=== PATIENT | male | born 2000 | race African-American/Black ===

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

== ENCOUNTER 2023-12-17 03:18 | Emergency (ER) | payer MEDICAID, SELFPAY ==
--- NOTE | ~2023-12-17 | XR_ITS ---
EXAMINATION: XR CHEST CLINICAL INFORMATION: Shortness of breath COMPARISON: Chest radiograph 02/06/2020 TECHNIQUE: Frontal view of the chest was obtained. FINDINGS: Normal appearance of the cardiomediastinal structures. No effusions or pneumothoraces. Normal pattern of pulmonary vasculature. No focal pulmonary consolidation. XR/XR chest 1V IMPRESSION: No acute cardiopulmonary abnormalities. Electronically signed by: Sorin Cronin MD 12/17/2023 03:59 AM EDT
[2023-12-17 03:20] VITALS: BP 145/87; PULSE 104; RESP 24; TEMP 36.6; O2SAT 93; BMI 25.1
--- NOTE | 2023-12-17 03:29 | MHC.EDTECH ---
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
--- NOTE | 2023-12-17 03:30 | ED_ITS ---
HPI - SOB/Dyspnea General Chief Complaint: Dyspnea Stated Complaint: asthma attack Time Seen by Provider: 12/17/23 03:26 Source: patient Mode of arrival: ambulatory Limitations: no limitations History of Present Illness ED Provider: Dr. Joie Kelly HPI Narrative: Patient comes to the emergency room complaining of shortness of breath due to an asthma exacerbation. Patient states that for about 9 hours now he has been trying to manage his asthma at home with his pump but it is not working. Patient denies chest pain. Related Data Previous Rx's ?Medication ?Instructions ?Recorded albuterol sulfate 90 mcg/actuation 2 inh inhalation Q6-8H PRN 02/06/20 aerosol inhaler shortness of breath or wheezing #18 grams prednisone 20 mg tablet 40 mg (2 x 20 mg) PO DAILY #10 tabs 02/06/20 albuterol sulfate 90 mcg/actuation 2 puff inhalation Q4-6H PRN 12/17/23 aerosol inhaler shortness of breath or wheezing #8.5 grams prednisone 50 mg tablet 50 mg PO DAILY #4 tabs 12/17/23 Allergies Allergy/AdvReac Type Severity Reaction Status Date / Time No Known Allergies Allergy Verified 12/17/23 03:22 Review of Systems 2 Review of Systems: Constitutional : No Weight loss, No Fever, No Chills, No Night Sweats, No Fatigue, No Malaise ENT/Mouth : No Hearing loss, No Ear Pain, No Nasal Congestion, No Sinus Pain, No Hoarseness, No sore throat, No Rhinorrhea, No Swallowing Difficulty Eyes: No Eye Pain, No Swelling, No Redness, No Foreign Body, No Discharge, No Vision Changes Cardiovascular : No Chest Pain, No SOB, No Dyspnea on Exertion, No Orthopnea, No Edema, No Palpitations Respiratory : No Cough, No Sputum, complaining of Wheezing, No Smoke Exposure, No Dyspnea Gastrointestinal : No Nausea, No Vomiting, No Diarrhea, No Constipation, No abdominal Pain, No Hematochezia, No Melena Genitourinary : no irregular bleeding, No Dysuria, No Urinary Frequency, No Hematuria, No Urinary Incontinence, No Urgency, No Flank Pain, No Urinary Flow Changes, No Hesitancy Musculoskeletal : No joint pain, No Myalgias, No Joint Swelling Skin : No Skin Lesions, No rash Neuro : No Weakness, No Numbness, No Paresthesias, No Loss of Consciousness, No Dizziness, No Headache Psych : No Anxiety/Panic, No Depression, No SI/HI/AH/VH, No Social Issues, Heme/Lymph: No Bruising, No Bleeding,No Lymphadenopathy Endocrine : No Polyuria, No Polydipsia, No Temperature Intolerance [facility] Past Medical History Medical History Asthma Family History Family History (System 12/23/22 @ 12:31 by Francia Rojas) Other Family history non-contributory Social History Social History (System 12/23/22 @ 12:31 by Francia Rojas) Household Members: Family Alcohol intake: never Advance Directives: No Advance Directives Information Provided: Yes Physical Exam 2 Vital Signs: Vital Signs: Last Vital Signs Temp 97.9 F 12/17/23 03:20 Pulse 106 H 12/17/23 04:53 Resp 18 12/17/23 04:53 BP 145/87 H 12/17/23 03:20 Pulse Ox 93 12/17/23 06:48 O2 Del Method Room Air 12/17/23 03:20 BMI result Body Mass Index 25.1 Const: Other: Appearance: Alert. Oriented X3. Uncomfortable Eyes: Pupils equal, round and reactive to light. ENT: Pharynx normal. Neck: Normal inspection. Neck supple. No lymph nodes noted. No crepitus CVS: Normal heart rate and rhythm. Pulses normal. Normal S1 and S2 Respiratory: In moderate respiratory distress, wheezing bilaterally, using accessory muscles Abdomen: Soft and nontender. No rigidity. No distention. Skin: Skin warm and dry. Normal skin color. Normal skin turgor. Extremities: No lower extremity edema. No Lacerations. No Rash Neuro: Oriented X 3. No motor deficit. No sensory deficit. Moving all extremities. No slurred speech. CN 2 through 12 grossly intact Psych: calm, cooperative, normal affect Course Course Course Narrative: Patient receiving an albuterol treatment, bronch protocol, magnesium, Solu- Medrol -patient's labs and x-rays pending Medications Administered Discontinued Medications Generic Name Dose Route Start Last Admin Trade Name Freq PRN Reason Stop Dose Admin Albuterol Sulfate 10 mg 12/17/23 04:42 12/17/23 04:51 Albuterol Sulfate (0.083%) 2.5 Mg/3 Ml Vial.Neb INHALE 10/05/24 04:43 10 mg ONCE ONE Administration Albuterol Sulfate 7.5 mg/ 0 mg 12/17/23 03:40 12/17/23 03:41 Albuterol/Ipratropium 3 ml INHALE 12/17/23 03:41 1 each ONCE ONE Administration Magnesium Sulfate 2 gm in 50 mls @ 25 mls/hr 12/17/23 03:27 12/17/23 05:53 Magnesium Sulfate/H2o IV 12/17/23 05:26 Infused ONCE ONE Infusion Methylprednisolone Sodium Succinate 125 mg 12/17/23 03:27 12/17/23 03:43 Methylprednisolone Sod Succ 125 Mg/2 Ml Vial IVPUSH 12/17/23 03:28 125 mg ONCE ONE Administration Medical Decision Making Medical Decision Making [facility] Narrative: My interpretation of labs: Normal hematology and chemistry -my interpretation of chest x-ray, no obvious abnormality, no infiltrate After IV treatment and nebulization treatments, patient feels better. Patient's oxygen saturation 91%, still wheezing but overall breathing more comfortably Patient receiving more nebulization treatments -patient needed an additional nebulization treatment. -patient was walked around the emergency room, oxygen saturation between 93 and 97%. No shortness of breath or wheezing. Patient feels much better. Patient states that before he came in he could barely walk couple of feet before getting significantly short of breath, no patient states that he can walk at baseline without getting shortness of breath. Differential Diagnosis Differential Diagnoses: The differential diagnosis associated with the presentation includes (Asthma exacerbation) Admission/Observation Consideration of admission/observation: Escalation of care including admission/observation considered (Given patient's initial presentation, observation/admission was considered) Lab Data [facility] Lab Attestation statement: I reviewed the patient's lab results. 12/17/23 03:39 12/17/23 03:39 Labs: Lab Results 12/17/23 Range/Units 03:39 WBC 10.1 (4.8-10.8) X10*3/uL RBC 5.52 (4.60-5.80) X10*6/uL Hgb 16.4 (14.0-18.0) g/dl Hct 48.3 (42.0-52.0) % MCV 87.5 (80.0-98.0) fL MCH 29.7 (27.0-33.0) pg MCHC 34.0 (31.0-36.0) g/dl RDW 11.9 (11.0-16.0) % Plt Count 261 (160-400) X10*3/uL MPV 10.3 (9.4-12.4) fL Immature Gran % (Auto) 0.2 (0.0-0.4) % Neut % (Auto) 43.6 L (45-73) % Lymph % (Auto) 38.4 (20-40) % [place]cl[place] % (Auto) 6.6 (2-11) % Eos % (Auto) 10.2 H (0-4) % Baso % (Auto) 1.0 (0-2) % Lymph # (Auto) 3.9 (1.2-4.9) X10*3/uL [place] # (Auto) 0.7 (0.1-1.2) X10*3/uL Eos # (Auto) 1.0 H (0.0-0.4) X10*3/uL Baso # (Auto) 0.1 (0.0-0.2) X10*3/uL Abs Immat Gran (auto) 0.02 (0.00-0.03) X10*3/uL Absolute Neuts (auto) 4.4 (2.0-8.3) x10*3/uL Absolute Nucleated RBC 0.000 (0.0-0.012) X10*3/uL Nucleated RBC % (auto) 0.0 (0.0-0.2) /100WBC Sodium 142 (135-145) mmol/L Potassium 3.9 (3.3-5.1) mmol/L Chloride 106 (96-108) mmol/L Carbon Dioxide 24 (22-29) mmol/L Anion Gap 16 (12-20) BUN 11 (9-16) mg/dL Creatinine 1.00 (0.5-1.4) mg/dL Estim Creat Clear Calc 115.8 Estimated GFR > 60 Random Glucose 90 (60-115) mg/dL Calcium 9.3 (8.4-10.2) mg/dL COVID-19 (LOS) Negative (Negative) COVID-19 Clin Com See Note Critical Care Time Critical Care Time Critical Care Time: Yes Total Critical Care Time: 60 Attestation: I have personally provided critical care time. Time includes review of lab data, radiology results, discussion with consultants, and monitoring for potential decompensation. Intervention performed as documented. Discharge Plan Discharge Clinical Impression: Asthma with exacerbation Patient Disposition: Home, Self-Care Instructions: Asthma (ED) Additional Instructions: Please follow-up with your primary care physician tomorrow. If you have any worsening or new symptoms, please return to the emergency room or call 911 Prescriptions: New albuterol sulfate 90 mcg/actuation HFA aerosol inhaler 2 puff inhalation Q4-6H PRN (Reason: shortness of breath or wheezing) Qty: 8.5 1RF prednisone 50 mg tablet 50 mg PO DAILY Qty: 4 0RF No Action albuterol sulfate 90 mcg/actuation HFA aerosol inhaler 2 inh inhalation Q6-8H PRN (Reason: shortness of breath or wheezing) Qty: 18 2RF prednisone 20 mg tablet 40 mg PO DAILY Qty: 10 0RF Print Language: Tamazight
[2023-12-17] MEDS: Albuterol Sulfate 7.5 MG, Albuterol/Iprat 2.5/0.5MG 3 ML 3 ML INHALE (03:41)
[2023-12-17 03:42] VITALS: PULSE 104; RESP 26; O2SAT 97
[2023-12-17 03:43] LABS: MANUAL DIFF FLAG NO
[2023-12-17] MEDS: methylPREDNISolone Sod Succ 125 MG/2 ML VIAL IVPUSH (03:43)
[2023-12-17] MEDS: Magnesium Sulfate/H2O 2 GM/50 ML PIGGYBACK IV (03:43)
[2023-12-17 03:44] LABS: Basophils Absolute Auto 0.1 X10*3/uL (0.0-0.2); Eosinophils Percent Auto 10.2 % (0-4); Hematocrit 48.3 % (42.0-52.0); Hemoglobin 16.4 g/dl (14.0-18.0); Imm Gran Abs Auto 0.02 X10*3/uL (0.00-0.03); Imm Gran Pct Auto 0.2 % (0.0-0.4); Lymphocytes Absolute Auto 3.9 X10*3/uL (1.2-4.9); Lymphocytes Percent Auto 38.4 % (20-40); Mean Corpuscular Hemoglobin 29.7 pg (27.0-33.0); Mean Corpuscular Volume 87.5 fL (80.0-98.0); Mean Platelet Volume 10.3 fL (9.4-12.4); Monocytes Absolute Auto 0.7 X10*3/uL (0.1-1.2); Monocytes Percent Auto 6.6 % (2-11); Neutrophils Absolute Auto 4.4 x10*3/uL (2.0-8.3); Neutrophils Percent Auto 43.6 % (45-73); Platelet Count 261 X10*3/uL (160-400); Red Blood Count 5.52 X10*6/uL (4.60-5.80); Red Cell Distribution Width 11.9 % (11.0-16.0); White Blood Count 10.1 X10*3/uL (4.8-10.8)
[2023-12-17 03:55] LABS: Anion Gap 16 (12-20); Blood Urea Nitrogen 11 mg/dL (9-16); Calcium 9.3 mg/dL (8.4-10.2); Carbon Dioxide 24 mmol/L (22-29); Chloride 106 mmol/L (96-108); Creatinine Clr Calc Pharmacy 115.8; Estimated Glomerular Filt Rate > 60; Glucose Random 90 mg/dL (60-115); Potassium 3.9 mmol/L (3.3-5.1); Sodium 142 mmol/L (135-145)
--- NOTE | 2023-12-17 04:03 | PC.NURSE ---
Patient brought from triage with SOB, wheezing, O2 Sat 88-90% RA. Patient placed on O2 at 4 LPM with improvement noted to 93-94%, cardiac monitoring initiated, sinus tachy, hr 100-111. IV line established in R AC, labs and COVID completed and sent to lab. RT at bedside.
--- NOTE | 2023-12-17 04:11 | PC.NURSE ---
RT administered nebulizer tx, supplemental O2 discontinued, patient saturating 94-95 % RA.
[2023-12-17 04:12] LABS: COVID-19 Test Negative (Negative); IDNOW Serial# 6674DD1D
[2023-12-17] MEDS: Albuterol Sulfate (0.083%) 2.5 MG/3 ML VIAL.NEB 10 MG INHALE (04:51)
[2023-12-17 04:53] VITALS: PULSE 106; RESP 18; O2SAT 92
[2023-12-17 06:48] VITALS: O2SAT 93
[2023-12-17 07:24] VITALS: BP 132/80; PULSE 90; RESP 18; TEMP 36.6; O2SAT 95
== END 2023-12-17 07:25 | disposition home or self-care (01) ==
PROVIDERS: Emergency Provider Emergency Medicine
DX: J45.901 Unspecified asthma with (acute) exacerbation (principal); R06.02 Shortness of breath; Z11.52 Encounter for screening for COVID-19; Z79.899 Other long term (current) drug therapy
CPT/HCPCS: 36415; 71045; 80048; 85025; 87635; 94640; 96365; 96366; 96375; 99284; 99285; J2919; J3475

== ENCOUNTER 2023-12-27 06:11 | Emergency (ER) | payer MEDICAID, SELFPAY ==
--- NOTE | ~2023-12-27 | XR_ITS ---
EXAMINATION: XR CHEST CLINICAL INFORMATION: Shortness of breath COMPARISON: Prior chest radiograph 12/17/2023 TECHNIQUE: Frontal view of the chest was obtained. FINDINGS: Lungs clear. Heart and pulmonary vessels normal. No change. XR/XR chest 1V IMPRESSION: Unremarkable examination. Electronically signed by: Luis F Clarke MD 12/27/2023 08:51 AM EDT
--- NOTE | 2023-12-27 06:18 | ECG_ITS ---
Test Reason : SOB Blood Pressure : / mmHG Vent. Rate : 119 BPM Atrial Rate : 119 BPM P-R Int : 122 ms QRS Dur : 084 ms QT Int : 318 ms P-R-T Axes : 080 089 074 degrees QTc Int : 447 ms Artifact in tracing Sinus tachycardia Otherwise normal ECG No previous ECGs available Referred By: Joie Kelly Electronically Signed By:GLORIA MCCULLOUGH
[2023-12-27 06:19] VITALS: BP 154/91; PULSE 123; RESP 24; TEMP 36.8; O2SAT 88; BMI 27.6
--- NOTE | 2023-12-27 06:19 | ED_ITS ---
HPI - SOB/Dyspnea General Chief Complaint: Asthma Stated Complaint: Asthma Flare up Time Seen by Provider: 12/27/23 06:15 Source: patient Mode of arrival: ambulatory Limitations: no limitations History of Present Illness ED Provider: Dr. Joie Kelly HPI Narrative: Patient comes to the emergency room complaining of shortness of breath. Patient known to be asthmatic. Patient states that now that the weather is changing he has noticed that with the cold his asthma gets worse. Patient states that he used 6 nebulization treatments throughout the last few hours without any significant relief. Patient denies chest pain. Related Data Previous Rx's ?Medication ?Instructions ?Recorded albuterol sulfate 90 mcg/actuation 2 inh inhalation Q6-8H PRN 02/06/20 aerosol inhaler shortness of breath or wheezing #18 grams prednisone 20 mg tablet 40 mg (2 x 20 mg) PO DAILY #10 tabs 02/06/20 albuterol sulfate 90 mcg/actuation 2 puff inhalation Q4-6H PRN 12/17/23 aerosol inhaler shortness of breath or wheezing #8.5 grams prednisone 50 mg tablet 50 mg PO DAILY #4 tabs 12/17/23 albuterol sulfate 2.5 mg/3 mL 2.5 mg (3 mL) inhalation Q4-6H PRN 12/27/23 (0.083 %) solution for nebulization shortness of breath or wheezing #75 mL albuterol sulfate 90 mcg/actuation 2 puff inhalation Q4-6H PRN 12/27/23 aerosol inhaler shortness of breath or wheezing #8.5 grams prednisone 50 mg tablet 50 mg PO DAILY #5 tabs 12/27/23 Allergies Allergy/AdvReac Type Severity Reaction Status Date / Time No Known Allergies Allergy Verified 12/27/23 06:21 Review of Systems 2 Review of Systems: Constitutional : No Weight loss, No Fever, No Chills, No Night Sweats, No Fatigue, No Malaise ENT/Mouth : No Hearing loss, No Ear Pain, No Nasal Congestion, No Sinus Pain, No Hoarseness, No sore throat, No Rhinorrhea, No Swallowing Difficulty Eyes: No Eye Pain, No Swelling, No Redness, No Foreign Body, No Discharge, No Vision Changes Cardiovascular : No Chest Pain, No SOB, No Dyspnea on Exertion, No Orthopnea, No Edema, No Palpitations Respiratory : No Cough, No Sputum, complaining of Wheezing, No Smoke Exposure, No Dyspnea Gastrointestinal : No Nausea, No Vomiting, No Diarrhea, No Constipation, No abdominal Pain, No Hematochezia, No Melena Genitourinary : no irregular bleeding, No Dysuria, No Urinary Frequency, No Hematuria, No Urinary Incontinence, No Urgency, No Flank Pain, No Urinary Flow Changes, No Hesitancy Musculoskeletal : No joint pain, No Myalgias, No Joint Swelling Skin : No Skin Lesions, No rash Neuro : No Weakness, No Numbness, No Paresthesias, No Loss of Consciousness, No Dizziness, No Headache Psych : No Anxiety/Panic, No Depression, No SI/HI/AH/VH, No Social Issues, Heme/Lymph: No Bruising, No Bleeding,No Lymphadenopathy Endocrine : No Polyuria, No Polydipsia, No Temperature Intolerance [facility] Past Medical History Medical History Asthma Family History Family History (System 12/23/22 @ 12:31 by Francia Rojas) Other Family history non-contributory Social History Social History (System 12/23/22 @ 12:31 by Francia Rojas) Household Members: Family Alcohol intake: never Advance Directives: No Advance Directives Information Provided: Yes Do you have a plan to hurt others: No Plan Physical Exam 2 Vital Signs: Vital Signs: Last Vital Signs Temp 98.3 F 12/27/23 06:19 Pulse 135 H 12/27/23 07:32 Resp 28 H 12/27/23 07:32 BP 154/91 H 12/27/23 06:19 Pulse Ox 88 L 12/27/23 06:19 O2 Del Method Room Air 12/27/23 06:19 BMI result Body Mass Index 27.6 Const: Other: Appearance: Alert. Oriented X3. No acute distress. Eyes: Pupils equal, round and reactive to light. ENT: Pharynx normal. Neck: Normal inspection. Neck supple. No lymph nodes noted. No crepitus CVS: Normal heart rate and rhythm. Pulses normal. Normal S1 and S2 Respiratory: Mother respiratory distress, using accessory muscles, oxygen saturation 89% on room air, bilateral wheezing, decreased air movement Abdomen: Soft and nontender. No rigidity. No distention. Skin: Skin warm and dry. Normal skin color. Normal skin turgor. Extremities: No lower extremity edema. No Lacerations. No Rash Neuro: Oriented X 3. No motor deficit. No sensory deficit. Moving all extremities. No slurred speech. CN 2 through 12 grossly intact Psych: calm, cooperative, normal affect Course Course Course Narrative: -all of patient's labs pending -patient receiving IV Solu-Medrol, magnesium in a brown protocol Medications Administered Generic Name Dose Route Start Last Admin Trade Name Freq PRN Reason Stop Dose Admin Magnesium Sulfate 2 gm in 50 mls @ 25 mls/hr 12/27/23 06:17 12/27/23 06:27 Magnesium Sulfate/H2o IV 12/27/23 08:16 25 mls/hr ONCE ONE Administration Discontinued Medications Generic Name Dose Route Start Last Admin Trade Name Freq PRN Reason Stop Dose Admin Albuterol Sulfate 10 mg 12/27/23 07:18 12/27/23 07:30 Albuterol Sulfate (0.083%) 2.5 Mg/3 Ml Vial.Neb INHALE 12/27/23 07:19 10 mg ONCE ONE Administration Albuterol Sulfate 7.5 mg/ 0 mg 12/27/23 06:28 12/27/23 06:30 Albuterol/Ipratropium 3 ml INHALE 12/27/23 06:29 2.5 each ONCE ONE Administration Levalbuterol HCl 3.75 mg 12/27/23 06:42 12/27/23 07:15 Levalbuterol Hcl 1.25 Mg/3 Ml Vial.Neb INHALE 12/27/23 06:43 3.75 mg ONCE ONE Administration Methylprednisolone Sodium Succinate 125 mg 12/27/23 06:17 12/27/23 06:26 Methylprednisolone Sod Succ 125 Mg/2 Ml Vial IVPUSH 12/27/23 06:18 125 mg ONCE ONE Administration Medical Decision Making Medical Decision Making MDM Narrative: After receiving a nebulization treatment, IV steroids, magnesium, patient states that he feels better. However, patient is still significantly wheezing. However he does have better air movement. Oxygen saturation 97%. Patient receiving another neb treatment. My interpretation of labs, at baseline hematology and chemistry, serology pending Shortness of breath pending Sign-out given to my colleague Dr. Schwab Differential Diagnosis Differential Diagnoses: The differential diagnosis associated with the presentation includes (Asthma, viral URI, pneumonia) Admission/Observation Consideration of admission/observation: Escalation of care including admission/observation considered (Given patient's presentation, admission considered) Lab Data MDM Lab Attestation statement: I reviewed the patient's lab results. 12/27/23 06:30 12/27/23 06:30 Labs: Lab Results 12/27/23 Range/Units 06:30 WBC 11.0 H (4.8-10.8) X10*3/uL RBC 5.70 (4.60-5.80) X10*6/uL Hgb 17.1 (14.0-18.0) g/dl Hct 50.5 (42.0-52.0) % MCV 88.6 (80.0-98.0) fL MCH 30.0 (27.0-33.0) pg MCHC 33.9 (31.0-36.0) g/dl RDW 12.2 (11.0-16.0) % Plt Count 294 (160-400) X10*3/uL MPV 10.0 (9.4-12.4) fL Immature Gran % (Auto) 0.3 (0.0-0.4) % Neut % (Auto) 56.7 (45-73) % Lymph % (Auto) 22.7 (20-40) % [place] % (Auto) 8.5 (2-11) % Eos % (Auto) 10.9 H (0-4) % Baso % (Auto) 0.9 (0-2) % Lymph # (Auto) 2.5 (1.2-4.9) X10*3/uL [place] # (Auto) 0.9 (0.1-1.2) X10*3/uL Eos # (Auto) 1.2 H (0.0-0.4) X10*3/uL Baso # (Auto) 0.1 (0.0-0.2) X10*3/uL Abs Immat Gran (auto) 0.03 (0.00-0.03) X10*3/uL Absolute Neuts (auto) 6.2 (2.0-8.3) x10*3/uL Absolute Nucleated RBC 0.000 (0.0-0.012) X10*3/uL Nucleated RBC % (auto) 0.0 (0.0-0.2) /100WBC Sodium 140 (135-145) mmol/L Potassium 3.9 (3.3-5.1) mmol/L Chloride 105 (96-108) mmol/L Carbon Dioxide 25 (22-29) mmol/L Anion Gap 14 (12-20) BUN 14 (9-16) mg/dL Creatinine 1.07 (0.5-1.4) mg/dL Estim Creat Clear Calc 108.2 Estimated GFR > 60 Random Glucose 101 (60-115) mg/dL Calcium 9.5 (8.4-10.2) mg/dL Total Bilirubin 0.7 (0.0-1.0) mg/dL Direct Bilirubin 0.3 (0.0-0.5) mg/dL AST 22 (5-37) U/L ALT 16 (0-40) U/L Alkaline Phosphatase 59 (39-117) U/L Troponin I High Sens < 2.7 (<3.5-35.0) ng/L Total Protein 7.8 (6.5-8.0) g/dL Albumin 4.8 (3.5-5.0) g/dL Influenza Type A (PCR) NEGATIVE (Negative) Influenza Type B (PCR) NEGATIVE (Negative) RSV RNA Qual (PCR) NEGATIVE (Negative) SARS-CoV-2 RNA (RT-PCR) NEGATIVE (Negative) Critical Care Time Critical Care Time Critical Care Time: Yes Total Critical Care Time: 45 Attestation: I have personally provided critical care time. Time includes review of lab data, radiology results, discussion with consultants, and monitoring for potential decompensation. Intervention performed as documented. Discharge Plan Discharge Clinical Impression: Asthma exacerbation Patient Disposition: Still a Patient Instructions: Asthma (ED) Additional Instructions: Please follow-up with your primary care physician tomorrow. If you have any worsening or new symptoms, please return to the emergency room or call 911 Prescriptions: New prednisone 50 mg tablet 50 mg PO DAILY Qty: 5 0RF albuterol sulfate 2.5 mg /3 mL (0.083 %) solution for nebulization 2.5 mg inhalation Q4-6H PRN (Reason: shortness of breath or wheezing) Qty: 75 0RF albuterol sulfate 90 mcg/actuation HFA aerosol inhaler 2 puff inhalation Q4-6H PRN (Reason: shortness of breath or wheezing) Qty: 8.5 1RF No Action albuterol sulfate 90 mcg/actuation HFA aerosol inhaler 2 inh inhalation Q6-8H PRN (Reason: shortness of breath or wheezing) Qty: 18 2RF prednisone 20 mg tablet 40 mg PO DAILY Qty: 10 0RF albuterol sulfate 90 mcg/actuation HFA aerosol inhaler 2 puff inhalation Q4-6H PRN (Reason: shortness of breath or wheezing) Qty: 8.5 1RF prednisone 50 mg tablet 50 mg PO DAILY Qty: 4 0RF Print Language: Malay
[2023-12-27] MEDS: methylPREDNISolone Sod Succ 125 MG/2 ML VIAL IVPUSH (06:26)
[2023-12-27] MEDS: Magnesium Sulfate/H2O 2 GM/50 ML PIGGYBACK IV (06:27)
[2023-12-27] MEDS: Albuterol Sulfate 7.5 MG, Albuterol/Iprat 2.5/0.5MG 3 ML 3 ML INHALE (06:30)
[2023-12-27 06:31] VITALS: PULSE 120; RESP 28; O2SAT 96
[2023-12-27 06:36] LABS: MANUAL DIFF FLAG NO
[2023-12-27 06:37] LABS: Basophils Absolute Auto 0.1 X10*3/uL (0.0-0.2); Basophils Percent Auto 0.9 % (0-2); Eosinophils Absolute Auto 1.2 X10*3/uL (0.0-0.4); Eosinophils Percent Auto 10.9 % (0-4); Hematocrit 50.5 % (42.0-52.0); Hemoglobin 17.1 g/dl (14.0-18.0); Imm Gran Abs Auto 0.03 X10*3/uL (0.00-0.03); Imm Gran Pct Auto 0.3 % (0.0-0.4); Lymphocytes Absolute Auto 2.5 X10*3/uL (1.2-4.9); Lymphocytes Percent Auto 22.7 % (20-40); Mean Corpuscular HGB Conc 33.9 g/dl (31.0-36.0); Mean Corpuscular Volume 88.6 fL (80.0-98.0); Monocytes Absolute Auto 0.9 X10*3/uL (0.1-1.2); Monocytes Percent Auto 8.5 % (2-11); Neutrophils Absolute Auto 6.2 x10*3/uL (2.0-8.3); Neutrophils Percent Auto 56.7 % (45-73); Platelet Count 294 X10*3/uL (160-400); Red Cell Distribution Width 12.2 % (11.0-16.0)
--- NOTE | 2023-12-27 06:48 | MHC.EDTECH ---
Patient brought back from triage,changed into hospital attire,placed on the cardiac surgeon,vitals taken,EKG completed per order and signed by provider,labs drawn and sent to lab,sars/flu/rsv obtained and sent to lab
[2023-12-27 06:53] LABS: Alanine Aminotransferase 16 U/L (0-40); Albumin Level 4.8 g/dL (3.5-5.0); Alkaline Phosphatase 59 U/L (39-117); Anion Gap 14 (12-20); Aspartate Amino Transferase 22 U/L (5-37); Bilirubin Direct 0.3 mg/dL (0.0-0.5); Bilirubin Total 0.7 mg/dL (0.0-1.0); Blood Urea Nitrogen 14 mg/dL (9-16); Calcium 9.5 mg/dL (8.4-10.2); Carbon Dioxide 25 mmol/L (22-29); Chloride 105 mmol/L (96-108); Creatinine Clr Calc Pharmacy 108.2; Estimated Glomerular Filt Rate > 60; Glucose Random 101 mg/dL (60-115); Potassium 3.9 mmol/L (3.3-5.1); Sodium 140 mmol/L (135-145); Total Protein 7.8 g/dL (6.5-8.0)
[2023-12-27 07:03] LABS: Troponin-I High Sensitivity < 2.7 ng/L (<3.5-35.0)
[2023-12-27] MEDS: levalbuterol HCL 1.25 MG/3 ML VIAL.NEB 3.75 MG INHALE (07:15)
[2023-12-27] MEDS: Albuterol Sulfate (0.083%) 2.5 MG/3 ML VIAL.NEB 10 MG INHALE (07:30)
[2023-12-27 07:32] VITALS: PULSE 135; RESP 28; O2SAT 97
[2023-12-27 07:59] LABS: Influenza A PCR NEGATIVE (Negative); Influenza B PCR NEGATIVE (Negative); Resp Syncy Virus RNA Qual PCR NEGATIVE (Negative); SARS COV2 PCR INHOUSE NEGATIVE (Negative)
[2023-12-27 09:07] VITALS: BP 159/89; PULSE 114; RESP 20; O2SAT 93
[2023-12-27 10:00] VITALS: BP 125/66; PULSE 118; RESP 20; TEMP 36.6; O2SAT 96
== END 2023-12-27 10:01 | disposition home or self-care (01) ==
PROVIDERS: Emergency Medicine; Emergency Provider Emergency Medicine Emergency Medical Services
DX: J45.901 Unspecified asthma with (acute) exacerbation (principal); R06.02 Shortness of breath; R00.0 Tachycardia, unspecified; Z03.818 Encounter for observation for suspected exposure to other biological agents ruled out; Z79.899 Other long term (current) drug therapy
CPT/HCPCS: 0241U; 71045; 80048; 80076; 84484; 85025; 93005; 94640; 96374; 96375; 99285; J2919; J3475

== ENCOUNTER → 2023-12-27 06:18 | Outpatient (BNV) | payer MEDICAID, SELFPAY | PROVIDERS: Emergency Provider Emergency Medicine Emergency Medical Services; Visit Provider Internal Medicine | DX: R00.0 Tachycardia, unspecified (principal) | CPT/HCPCS: 93010 ==

== ENCOUNTER 2024-01-31 13:35 | Outpatient (AMB) | payer MEDICAID, SELFPAY ==
[2024-01-31 13:41] VITALS: BP 119/62; PULSE 99; O2SAT 98; BMI 28.4
--- NOTE | 2024-01-31 13:41 | MHC.OFFVIS ---
Vital Signs 01/31/24 13:41 Height 5 ft 8 in Weight 187 lb BMI 28.4 BP 119/62 Blood Pressure Location Rt brachial Position Sitting Pulse 99 Pulse Source Doppler Pulse Oximetry (%) 98 Oxygen Delivery Method Room Air Intake Visit Reasons: asthma Allergies No Known Allergies Allergy (Verified 01/31/24 13:45) HPI HPI asthma: Details: 23-year-old gentleman, does not smoke tobacco, occasionally smokes marijuana, with underlying asthma since childhood, previously controlled on albuterol MDI/nebs, with several recent exacerbations treated with several courses of prednisone and started on Advair 250, now with improved control referred for pulmonary follow-up. Patient denies having recent pulmonary function testing. He does complain of environmental allergies and does not have recent allergy testing. He has multiple first-degree relatives with asthma, including his parents. Patient does have a dog as a pet. He denies exposure to industrial dusts. [facility] Medical History (Updated 01/31/24 @ 14:10 by Kole Morgan MD) Asthma Family History (System 12/23/22 @ 12:31 by Francia Rojas) Other Family history non-contributory Social History (Updated 01/31/24 @ 13:46 by Pina Birmingham [facility]) Household Members: Family Alcohol intake: never Patient Tobacco Use Status: Never used Tobacco Substance Use Type: Marijuana Review of Systems Const Denies daytime sleepiness, Denies excessive sweating, Denies fatigue, Denies fever(s), Denies lethargy, Denies malaise, Denies night sweats, Denies snoring and Denies weight loss Eyes Denies blurry vision and Denies itchy eyes ENT Denies nasal congestion, Denies post nasal drip, Denies sinus pain, Denies sinus pressure and Denies other ( Thrush) Card Denies chest pain, Denies pedal edema, Denies dyspnea, Denies orthopnea and Denies paroxysmal nocturnal dyspnea Resp Denies cough, Denies hemoptysis, Denies excessive phlegm production, Denies dyspnea, Denies snoring and Denies wheezing GI Denies abdominal pain and Denies heartburn Musc Denies myalgias, Denies arthralgias and Denies joint swelling Skin/Breast Denies rash Neuro Denies memory loss and Denies seizure-like activity Psych Denies abnormal sleep pattern, Denies anxiety and Denies memory loss Endo Denies excessive sweating, Denies fatigue and Denies heat intolerance Librado/Lymph Denies easy bruising Aller/Immun Denies itchy eyes, Denies seasonal rhinorrhea and Denies wheezing Physical Exam Vital Signs: Last Vital Signs Pulse 99 01/31/24 13:41 BP 119/62 01/31/24 13:41 Pulse Ox 98 01/31/24 13:41 Oxygen Delivery Method Room Air 01/31/24 13:41 BMI result Body Mass Index 28.4 Const General: no acute distress and alert Nutritional Appearance: not obese Orientation/consciousness: Other orientation findings ( oriented) HEENT Head: Yes atraumatic Eyes General: appearance normal, both eyes and all related structures Sclerae: sclerae normal EOM: EOMs intact bilaterally Neck Neck: Yes supple Lymphatic: no lymphadenopathy noted Resp Effort & Inspection: normal respiratory effort and no use of accessory muscles Auscultation: clear to auscultation bilaterally Cardio Rate: regular rate Rhythm: regular rhythm Heart sounds: no gallops, no murmurs and no rubs Skin General skin exam: other ( warm) Extrem General: No clubbing, No cyanosis and No edema Assessment & Plan Assessment & Plan (1) Asthma: Code(s): J45.909 - Unspecified asthma, uncomplicated Category: Medical Plan: Currently controlled on Advair 250 and albuterol MDI/nebs. Continue current regimen. Will obtain full PFT. (2) Environmental allergies: Code(s): Z91.09 - Other allergy status, other than to drugs and biological substances Category: Medical Plan: Will obtain IgE level, CBC with differential, and RAST panel for further evaluation. Orders: Orders Complete Blood Count Auto Diff Today Z91.09 - Other allergy status, other than to drugs and biological substances Resp Allergy Profile Region I Today Z91.09 - Other allergy status, other than to drugs and biological substances PFT pulmonary function test Today J45.909 - Unspecified asthma, uncomplicated Coding Level of Care Code New Pt Level 4 (04571) Diagnoses Asthma J45.909 Environmental allergies Z91.09
== END 2024-01-31 14:07 | disposition home or self-care (01) ==
PROVIDERS: Visit Provider Internal Medicine Pulmonary Disease
DX: J45.909 Unspecified asthma, uncomplicated (principal); Z91.09 Other allergy status, other than to drugs and biological substances
CPT/HCPCS: 99204

== ENCOUNTER → 2024-01-31 13:35 | Outpatient (BNVA) | payer MEDICAID, SELFPAY | PROVIDERS: Visit Provider Internal Medicine Pulmonary Disease | DX: J45.909 Unspecified asthma, uncomplicated (principal); Z91.09 Other allergy status, other than to drugs and biological substances | CPT/HCPCS: 99202 ==

== ENCOUNTER 2025-01-31 22:37 | Emergency (ER) | payer OTHER, SELFPAY ==
[2025-01-31 22:49] VITALS: BP 137/75; PULSE 75; RESP 18; TEMP 36.9; O2SAT 97; BMI 40.2
[2025-01-31 23:00] VITALS: BP 137/75; PULSE 75; RESP 18; TEMP 36.9; O2SAT 97
--- OUTSIDE RECORDS SUMMARY | 2025-01-31 23:56 | XMS_ITS | Clinical Summary ---
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 1 each 08/10/19 24 Active acetaminophen (Tylenol) 500 MG tablet Take 2 tablets (1,000 mg) by mouth every 6 (six) hours if needed for moderate pain or fever for up to 25 doses. 30 tablet 08/10/19 24 Active Ventolin HFA 108 (90 Base) MCG/ACT inhaler Inhale 2 puffs every 4 (four) hours if needed. 12/08/19 24 Active Blood Pressure Monitoring (Omron 3 Series BP Monitor) device 1 kit. 08/10/19 24 Active Spacer/Aero-Hol ding Chambers (OptiChamber Radha) misc USE WITH INHALER EVERY 4 HOURS NEEDED FOR ASTHMA 08/14/19 24 Active triamcinolone (Kenalog) 0.1 % ointment MIX WITH CERAVE OINTMENT AND APPLY TO SKIN TWICE DAILY 10/19/19 24 Active albuterol (2.5 MG/3ML) 0.083% nebulizer solutionIndicat ions:Mild intermittent asthma with exacerbation Take 3 mL (2.5 mg) by nebulization every 6 (six) hours if needed for wheezing. 75 mL 11 12/19/19 24 Active Nebulizers misc 1 kit Every 4-6 hours as needed. Use as directed for shortness of breath and wheezing. Acceleron nebulizer given 12/19/2023 walk in center, teaching provided Active predniSONE (Deltasone) 50 MG tablet Take 1 tablet (50 mg) by mouth Once per day. 5 tablet 02/17/20 24 Active Advair Diskus 250-50 MCG/ACT aerosol powder Inhale 1 puff 2 times daily. 60 each 6 02/17/20 24 Active loratadine (Claritin) 10 MG tablet TAKE 1 TABLET BY MOUTH ONCE DAILY 30 tablet 1 12/25/19 25 Active triamcinolone (Kenalog) 0.1 % ointmentIndicat ions:Intrinsic eczema MIX WITH CERAVE OINTMENT AND APPLY TO SKIN TWICE DAILY 80 g 2 12/25/19 25 Active Ventolin HFA 108 (90 Base) MCG/ACT inhaler INHALE 2 PUFF EVERY 4 TO 6 HOURS NEEDED FOR WHEEZING 18 g 1 01/26/20 25 Active albuterol (Ventolin HFA) 108 (90 Base) MCG/ACT inhaler Inhale 2 puffs every 6 (six) hours if needed for wheezing. INHALE 2 PUFFS BY MOUTH EVERY 4 HOURS NEEDED FOR WHEEZING OR SHORTNESS OF BREATH 18 g 1 08/01/19 25 2024 Discontinued Active Problems Problem Noted Date Diagnosed Date Moderate persistent asthma with exacerbation 09/2023 Assessment & Plan (02/18/2024 4:26 PM EST): Early asthma exacerbation, one day into symptoms RR 19, sats 98%, no increased work of breathing Will treat expediently as outpatient to hopefully avoid similar worsening of symptoms as occurred in Dec 2023 -- given Albuterol neb in clinic with improvement in air movement -- prednisone 50mg x 5 days -- refills of Advair given, to start after prednisone is completed -- ER precautions if not better in 24-48 hours Strabismus 01/12/2024 Blurry vision, left eye 01/12/2024 Health care maintenance 01/12/2024 Mild intermittent asthma without complication Assessment & Plan (01/12/2024 12:12 PM EDT): He nicolas an appointment with pulmonology next month C/w same medication regimen Patient educated to avoid triggers Intrinsic eczema 05/25/2023 Assessment & Plan (07/12/2023 2:58 PM EDT): Maintain area dry and clean Continue with same regimen triamcinolone mix it with CERA-V and apply to affected area BID daily Seasonal allergies 05/25/2023 Encounters Date Type Department Care Team Description 01/24/2025 Refill [facility] [address] [place] [address] Ary Busch MD 12/22/2024 Refill [facility] [address] [place] [address] Sae Dove MD Intrinsic eczema 12/22/2024 Refill [facility] [address] [place] [id number] Ary Busch MD Intrinsic eczema from Last 3 Months Immunizations Immunization Administration Dates Next Due DTaP 10/21/2006, 3,05/25/2002,03/26,01/25/2002 HPV 9-Valent 07/20/2016,07/20/2016 HPV, Quadrivalent 03/29/2013 Hep A, ped/adol, 2 dose 01/01/2011,02/11/2007 Hep B, Adolescent or Pediatric 05/25/2002,2001,2001 Hib (HbOC) 02/22/2003, 3,03/26/2002,01/25 IPV 10/21/2006, 3,03/26/2002,01/25 Influenza Injectable Quadriv alant Preservative Free IIV4 MDCK 03/26/2021,03/20/2019 Influenza injectable quadriv alent preservative free 04/27/2018 Influenza, IIV3, injectable 04/11/2017,0 11/28/2012,01/06/2012,01/01,01/22/2010 Influenza, seasonal, injecta ble, preservative free 01/12/2024,05/21/2020,01/30/2015,12/07 MMR 10/21/2006,11/23/2002 Meningococcal MCV4P ACYW-135 04/27/2018,03/29/19 14 Pfizer Covid-19 Vaccine 12+ 01/12/2024 Pneumococcal Conjugate PCV 20 01/12/2024 Pneumococcal Conjugate PCV 7 11/23/2002, 08/28/2002,03/26/2002,01/25 Tdap 03/29/2013 Varicella 11/24/2006,11/23/2002 Social History Tobacco Use Types Packs/Day Years Used Date Smoking Tobacco: Never Smokeless Tobacco: Never Tobacco Cessation:Counseling Given: Not Answered Alcohol Use Standard Drinks/Week Comments Yes 0 (1 standard drink = 0.6 oz pur e alcohol) occasionally Depression Answer Date Recorded Patient Health Questionnaire-9 Score 0 01/12/2024 Patient Health Questionnaire-9 Score 0 01/12/2024 Last PHQ-9: Questionnaire Data Not on file 1 Housing Stability Answer Date Recorded What is your housing situation today? I have meekeden wolfe 01/05/[address] you li ve. Do you have problems with any of the following? None of the above 01/05/2024 Food Insecurity Answer Date Recorded Within the past 12 months, y ou worried that your food would run out before you got money to buy more: Never True 01/05/2024 Within the past 12 months,th e food you bought just didn't last and you didn't have enough money to get more: Never True Transportation Answer Date Recorded In the past 12 months, has l ack of transportation kept you from medical appts, meetings, work or from getting things needed for daily living? No 01/05/2024 Utilities Answer Date Recorded In the past 12 months, has t he electric, gas, oil or water company threatened to shut off services in your home? No 01/05/2024 Depression Answer Date Recorded Patient Health Questionnaire-2 Score 0 01/12/2024 Internet Access Answer Date Recorded Internet Access Q1 Yes 01/05/2024 Internet Access Q2 Not on file 01/05/2024 Sex and Gender Information Value Date Recorded Sex Assigned at Male 05/25/2023 1:53 PM EDT Legal Sex Male 1:49 PM EDT Gender Identity Male 05/25/2023 1:53 PM EDT Sexual Orientation Straight 05/25/2023 1: 53 PM EDT Last Filed Vital Signs Vital Sign Reading Time Taken Comments Blood Pressure 149/89 02/17/2024 9:33 AM EST Pulse 85 02/17/2024 9:33 AM EST Temperature 36.6 C (97.8 F) 02/17/2024 9:33 AM EST Respiratory Rate 19 02/17/2024 9:33 AM EST Oxygen Saturation 98% 02/17/2024 9:33 AM EST Inhaled Oxygen Concentration - - Weight 83 kg (183 lb) 02/17/2024 9:33 AM EST Height 175.3 cm (5' 9 ) 02/17/2024 9:33 AM EST Body Mass Index 27.02 02/17/2024 9:33 AM EST Plan of Treatment Health Maintenance Due Date Last Done Comments Chlamydia and Gonorrhea Screening 2001 HIV Screening 2001 Disability Screening 2001 Alcohol/Substance Use Screening 2013 Family Planning (PISQ) 2016 Meningococcal B Vaccine (1 of 2 - Standard) 2017 Hepatitis C Screening 11/22/2019 DTaP/Tdap/Td Vaccines (7 - Td or Tdap) 03/29/2023 03/29/2013, 10/21/2006, 02/22/2003, Additional history exists COVID-19 Vaccine (2 - season) 2024 01/12/2024 Influenza Vaccine (#1) 2024 , 03/26/2021, 05/21/2020, Additional history exists SDOH Screening 01/04/2025 01/05/2024 Depression Screening 01/11/2025 01/12/2024, 01/12/20 24 Tobacco Screening 02/17/2025 02/18/2024 Zoster Vaccines (1 of 2) 11/22/2051 RSV Patients and Patients Aged 60 years or older (1 - 1-dose 75+ series) 2076 Hepatitis B Vaccines Completed 05/25/2002, 2001, 2001 HIB Vaccines Completed 02/22/2003, 05/12, 03/26/2002, Additional history exists IPV Vaccines Completed 10/21/2006, 11/12, 03/26/2002, Additional history exists Hepatitis A Vaccines Completed 01/01/2011, 02/12/20 07 HPV Vaccines Completed 07/20/2016, 050 11/2016, 03/29/2013 Meningococcal Vaccine Completed 04/27/2018, 014 Pneumococcal Vaccine: Pediatrics (0 to 5 Years) and At-Risk Patients (6 to 49) Years Completed 01/12/2024, 11/23/2002, 08/28/2002, Additional history exists RSV under 20 months Aged Out No longe r eligible based on patient's age to complete this topic Rotavirus Vaccines Aged Out No longer eligible based on patient's age to complete this topic Insurance [employer] C3 [employer] Care Teams 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
--- OUTSIDE RECORDS SUMMARY | 2025-01-31 23:56 | XMS_ITS | Encounter Summary ---
Author Organization [employer] Address [address] [place] [address] [place] [address] Care Team Providers Care Sales Outfitter Name Role Phone Ary Busch MD Primary Care Provide r Reason for Visit * Reason Onset Date Comments Med Refill 09/01/2023 Encounter Details Date Type Department Care Team ([facility] st Contact Info) Description 09/01/2023 Telephone [facility] MEDICINE [address] [place] [address] Felix Rodas MD [address] [place] [address] Med Refill Social History Tobacco Use Types Packs/Day Years Used Date Smoking Tobacco: Never Smokeless Tobacco: Never Sex and Gender Information Value Date Recorded Sex Assigned at Male 05/25/2023 1:53 PM EDT Legal Sex Male 1:49 PM EDT Gender Identity Male 05/25/2023 1:53 PM EDT Sexual Orientation Straight 05/25/2023 1: 53 PM EDT documented as of this encounter Miscellaneous Notes * Telephone Encounter - Pina Fernandez LPN - 09/01/2023 11:37 AM EDT Medication pended to provider. * Telephone Encounter - Christy Ly - 09/01/2023 11:33 AM EDT TC from pt requesting medication refill. Medications needing refill : Ventolin HFA 108 (90 Base) MCG/ACT inhaler To be sent to: [id number] - [place] - [id number] [facility] documented in this encounter Plan of Treatment Not on file documented as of this encounter Visit Diagnoses Not on filedocumented in this encounter Care Teams Sales Outfitter Relationship Specialty Start Date End Date Ary Busch MD [address] [place] [address] [place] [address] PCP - General Internal Medicine 12/28/23 documented as of this encounter
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
[2025-02-01 01:46] VITALS: BP 131/79; PULSE 70; RESP 16; TEMP 36.5; O2SAT 98
== END 2025-02-01 01:46 | disposition home or self-care (01) ==
PROVIDERS: Emergency Provider Emergency Medicine
DX: S13.4XXA Sprain of ligaments of cervical spine, initial encounter (principal); S01.81XA Laceration without foreign body of other part of head, initial encounter; V43.52XA Car driver injured in collision with other type car in traffic accident, initial encounter; W22.11XA Striking against or struck by driver side automobile airbag, initial encounter; Y93.9 Activity, unspecified; Y92.410 Unspecified street and highway as the place of occurrence of the external cause; Y99.9 Unspecified external cause status
CPT/HCPCS: 99283; 99284